=== PATIENT | female | born 1975 | race Hispanic/Latino ===

== ENCOUNTER 2018-06-14 20:02 | Emergency (ER) | payer MEDICAID ==
[2018-06-14] MEDS ORDERED: KETOROLAC TROMETHAMINE 60 MG/2 ML VIAL ONE (20:41)
[2018-06-14] MEDS ORDERED: HYDROCODONE/ACETAMINOPHEN 10/325 MG TAB ONE (20:42)
== END 2018-06-14 21:50 | disposition home or self-care (01) ==
LOC: EDH 20:02
DX: K02.9 Dental caries, unspecified (principal); Z90.49 Acquired absence of other specified parts of digestive tract; Z98.51 Tubal ligation status; Z72.0 Tobacco use
CPT/HCPCS: 96372; 99283; J1885